=== PATIENT | male | born 1995 | race Two or more races ===

== ENCOUNTER 2017-01-03 14:51 | Emergency (ER) | payer OTHER ==
[~2017-01-03] VITALS: Ht 167.6 cm; Wt 74.8 kg
[2017-01-03 14:53] VITALS: BP 143/75
== END 2017-01-03 15:34 ==
LOC: ER 14:53
DX: Z00.8 Encounter for other general examination (principal)
CPT/HCPCS: 99283; A4606; Z7610

== ENCOUNTER 2017-07-05 17:00 | Emergency (ER) | payer OTHER ==
[~2017-07-05] VITALS: Ht 167.6 cm; Wt 54.4 kg
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
[2017-07-05] MEDS ORDERED: ACETAMINOPHEN ES 500 MG TABLET ONE (17:38)
--- NOTE | 2017-07-05 17:52 | NUR ---
PATIENT TAKEN TO RADIOLOGY VIA STRETCHER.
[2017-07-05] MEDS ORDERED: ACETAMINOPHEN ES 500 MG TABLET PO ONE (18:00)
--- NOTE | 2017-07-05 18:45 | NUR ---
dermabond applied by md to patients minor chin laceration.
--- NOTE | 2017-07-05 19:05 | NUR ---
refused vitals upon discharge as well.
--- NOTE | 2017-07-05 19:05 | NUR ---
Patient discharged in custody in stable condition. Written and verbal after care instructions given. Patient verbalizes understanding of instruction.
== END 2017-07-05 19:24 ==
LOC: ER 17:09
DX: S01.81XA Laceration without foreign body of other part of head, initial encounter (principal); S40.011A Contusion of right shoulder, initial encounter; Y04.8XXA Assault by other bodily force, initial encounter; Y93.89 Activity, other specified; Y92.89 Other specified places as the place of occurrence of the external cause; Y99.8 Other external cause status
CPT/HCPCS: 70110-TC; 73030-TC; A6402